=== PATIENT | female | born 1955 | race Caucasian/White ===

== ENCOUNTER 2019-08-02 11:42 | Inpatient (IN) | payer MEDICARE ==
[~2019-08-02] VITALS: Ht 182.9 cm; Wt 89.5 kg
[~2019-08-02 11:42] MED LIST: ALBU90OI; ALBU90OI INH; ALBU90OI61 INH; ALBUIS INH; AZIT250 PO; Acetaminophen1 EAC2 PO; Ativan0.5 MG PO; BASAGLAR K100 UNIT/1 SC; BECL40OI; BECL40OI INH; Ceftriaxone2 G1 IV; Cleocin HCl150 MG PO; FLUSAL1005; FLUSAL2505 INH; FLUT1DIS5 INH; FURO20 PO; FURO40 PO; Ferrous Sulfat325 MG PO; GABA100 PO; INSDET100 SC; INSU100I6 SC; INSULANI SC; INSULANPEN SC; Keflex500 MG PO; LEVFLO500 PO; LEVO750 PO; Levaquin500 MG PO; METF500; METF500C PO; Metoprolol Tart25 MG PO; NOVOLOG FL100 UNIT/3 SC; Novolog Fl100 UNIT/1 SQ; OMEPRAZOLE MAGN20 MG PO; OXYC5 PO; POTCHL10ER; POTCHL10ER PO; PRODEXEL PO; QVAR7.3 G1 INH; RIFA550T2 PO; SPIR50 PO; SUCR1 PO; VANCOMYCIN2 GM/250 M IV; Zofran Odt4 MG PO; [UNRECOGNIZED DRUG - REMARK]
[2019-08-02 12:30] LABS: Source, Urine Catheter
[2019-08-02 12:39] LABS: Bilirubin, Urine Neg (Neg); Blood, Urine 5+ (Neg); Glucose Qualitative, Urine Neg (Neg); Ketones, Urine 1+ (Neg); Leukocyte Esterase, Urine 1+ (Neg); Nitrite, Urine Pos (Neg); Protein, Urine 1+ (Neg); Urobilinogen, Urine NORM (Normal)
[2019-08-02 12:49] LABS: International Normalized Ratio 1.45; Prothrombin Time Results 15.2 Sec (9.7-11.5)
[2019-08-02 12:54] LABS: Appearance, Urine Hazy (Clear); Color, Urine Yellow (P-Yellow)
[2019-08-02 12:57] LABS: Bacteria Many /hpf; Squamous Epithelial Cells Rare /hpf (Few)
[2019-08-02 13:02] LABS: Albumin, Blood 2.7 g/dL (3.4-5.0); Albumin/Globulin Ratio 0.7 (0.8-1.8); Bilirubin, Total 2.6 mg/dL (0.1-1.0); Bun/Creatinine Ratio 20.4 (12.0-20.0); Creatinine, Blood 1.42 mg/dL (0.40-1.00); Globulin, Blood 3.9 g/dL (2.2-4.0); Potassium, Blood 4.5 mmol/L (3.5-5.5); Total Protein, Blood 6.6 g/dL (6.4-8.2)
[2019-08-02 14:20] LABS: BASOPHILS PERCENT AUTO 0 % (0-2); EOSINOPHILS PERCENT AUTO 0 % (0-6); Hematocrit 32.6 % (33.0-51.0); Hemoglobin 10.4 g/dL (11.5-16.0); IMMATURE GRAN ABSOLUTE AUTO 0.09 K/mm3 (0.00-0.10); IMMATURE GRAN PERCENT AUTO 2 % (0-1); LYMPHOCYTES ABSOLUTE AUTO 0.25 K/mm3 (0.84-5.20); LYMPHOCYTES PERCENT AUTO 5 % (21-46); MONOCYTES ABSOLUTE AUTO 0.53 K/mm3 (0.16-1.47); MONOCYTES PERCENT AUTO 11 % (4-13); Mean Corpuscular HGB 29.9 pg (26.0-34.0); Mean Corpuscular HGB Conc 31.9 g/dL (31.5-36.5); Mean Corpuscular Volume 94 fL (80-100); Mean Platelet Volume 11.5 fL (9.1-12.4); NEUTROPHILS ABSOLUTE AUTO 3.99 K/mm3 (1.96-9.15); NEUTROPHILS PERCENT AUTO 82 % (41-73); RDW Coefficient Variation 14.3 % (11.7-14.2); RDW Standard Deviation 48.8 fL (35.1-46.3); Red Blood Cell Count 3.48 M/mm3 (3.80-5.20); White Blood Cell Count 4.86 K/mm3 (4.00-11.30)
[2019-08-02 14:26] LABS: Platelet Count 35 K/mm3 (150-400)
[2019-08-02] MEDS ORDERED: ALDACTONE100 MG PO (15:40)
[2019-08-02 16:20] LABS: Adenovirus Not Detected (NOT DETECT); Bordetella pertussis Not Detected (NOT DETECT); Chlamydophila pneumoniae Not Detected (NOT DETECT); Coronavirus 229E Not Detected (NOT DETECT); Coronavirus HKU1 Not Detected (NOT DETECT); Coronavirus NL63 Not Detected (NOT DETECT); Coronavirus OC43 Not Detected (NOT DETECT); Human Metapneumovirus Not Detected (NOT DETECT); Human Rhinovirus/Enterovirus Not Detected (NOT DETECT); Influenza A/2009-H1 Not Detected (NOT DETECT); Influenza A/H1 Not Detected (NOT DETECT); Influenza A/H3 Not Detected (NOT DETECT); Influenza B Not Detected (NOT DETECT); Mycoplasma pneumoniae Not Detected (NOT DETECT); Parainfluenza Virus 1 Not Detected (NOT DETECT); Parainfluenza Virus 2 Not Detected (NOT DETECT); Parainfluenza Virus 3 Not Detected (NOT DETECT); Parainfluenza Virus 4 Not Detected (NOT DETECT); Respiratory Syncytial Virus Not Detected (NOT DETECT)
[2019-08-02] MEDS ORDERED: TRAZ50 PO (17:54)
--- NOTE | 2019-08-02 19:39 | NUR ---
SHIFT SUMMARY: Pt arrived to unit around 1730. Oriented to self, place, time and surrounding, confused to situation. States she does not know why she was here. LS diminished. HR irregular. BT hyperactive. Abd is distended but soft. Pt states that this is normal for her. Pt does have some jaundice noted in her sclara. Pulses palp. Pt states that she does have some numbness in her BLE. Bruising noted over all extremities. Pt states that she has fallen at home a few times. VSS were stable at admit. Pt did have one episode stool incontinence. Pt was changed and cleaned. IVF started per orders. Antibiotics given per orders. Report was given to night RN and care transfered. Stable at end of shift.
[2019-08-03 03:55] LABS: Hemoglobin 10.3 g/dL (11.5-16.0); Mean Corpuscular HGB Conc 32.2 g/dL (31.5-36.5); Mean Corpuscular Volume 93 fL (80-100); Mean Platelet Volume 12.2 fL (9.1-12.4); RDW Coefficient Variation 14.3 % (11.7-14.2); RDW Standard Deviation 49.5 fL (35.1-46.3); Red Blood Cell Count 3.43 M/mm3 (3.80-5.20)
[2019-08-03 04:02] LABS: Platelet Count 42 K/mm3 (150-400)
[2019-08-03 04:12] LABS: Calcium, Blood 7.9 mg/dL (8.5-10.1); Creatinine, Blood 1.25 mg/dL (0.40-1.00)
--- NOTE | 2019-08-03 04:47 | NUR ---
SHIFT SUMMARY: PATIENT MENTATION IMPROVING THROUGHOUT SHIFT, PARANOIA AND FORGETFUL BEHAVIOR NO LONGER AND ISSUE. PATIENT ABLE TO GET FROM BED TO BSC WITH SBA, STEADY ON FEET. ALL VSS, CALL LIGHT WITHIN REACH, BED LWO AND LOCKED.
[2019-08-03 16:06] LABS: Campylobacter Sp Not Detected (NOT DETECT); Plesiomonas Shigelloides Not Detected (NOT DETECT); Salmonella Sp Not Detected (NOT DETECT); Vibrio Cholerae Not Detected (NOT DETECT); Vibrio Sp Not Detected (NOT DETECT); Yersinia Enterocolitica Not Detected (NOT DETECT)
[2019-08-03 16:07] LABS: Adenovirus F 40/41 Not Detected (NOT DETECT); Astrovirus Not Detected (NOT DETECT); Cryptosporidium Not Detected (NOT DETECT); Cyclospora Cayetanensis Not Detected (NOT DETECT); E. Coli O157 Not Detected (NOT DETECT); Entamoeba Histolytica Not Detected (NOT DETECT); Enteroaggregative E. coli-EAEC Not Detected (NOT DETECT); Enteropathogenic E. coli-EPEC Not Detected (NOT DETECT); Enterotoxigenic E. coli-ETEC Not Detected (NOT DETECT); Giardia Lamblia Not Detected (NOT DETECT); Norovirus GI/GII Not Detected (NOT DETECT); Rotavirus A Not Detected (NOT DETECT); Sapovirus Not Detected (NOT DETECT); Shiga Toxin-prod E. coli-STEC Not Detected (NOT DETECT); Shigella/Enteroin E. coli-EIEC Not Detected (NOT DETECT)
--- NOTE | 2019-08-03 16:35 | NUR ---
TRANSFER NOTE PT A&O; LABILE IN MOOD, PLEASANT AT TIMES AND IRRITABLE WITH STAFF AT TIMES. PT REPORTS MARCANO; MEDICATED x1 WITH TYLENOL WITH POSITIVE RESULTS. PT REPORTS SENSITIVE SKINS, AGGITATED WITH VS AND IV INSERTION; USED THERAPUTIC COMMUNICATION TO ASSIST PT THROUGH PROCEDURES. PT HR THIS AM 120-150'S AFIB/FLUTTER THIS AM, MEDICATED WITH SCHEDULED METOPROLOL; HR TRENDING DOWN, REPORTING DIZZINESS YEARLY THIS AM WIHT INCREASED HR, DENYING THIS AFTERNOON. PT DENIES SOB, NAUSEA AND CHEST PAIN/PRESSURE. STOOL SPECIMEN SENT FOR GI PANEL. PT RECEIVING IV ANTIBIOTICS. OTHER VSS. NO OTHER ACUTE CHANGES NOTED. REPORT GIVEN TO RN ASSUMING CARE OF PT; PT TRANSFERED TO ROOM 359 AT 1619.
--- NOTE | 2019-08-03 18:55 | NUR ---
SHIFT SUMMARY: ASSUMED CARE OF PATIENT AT 1620 UPON HER ARRIVAL FROM PCU. A&O X 3, PLEASANT AND COOPERATIVE, NO CONFUSION NOTED. O2 SAT > 92% ON RA. HAVING DIARRHEA, STOOL PANEL SENT WHILE STILL IN PCU; RESULTED C DIFF +, PLACED IN ISOLATION AND EDUCATED ABOUT, VERBALIZED UNDERSTANDING. SKIN IS HEAVILY BRUISED AND PAINFUL TO THE TOUCH. GOOD APPETITE. USING BR, WEARING PULL UP. REFUSING SCD'S. PLAN IS D/C HOME WHEN APPROPRIATE, LIVES ALONE AND SON CHECKS ON HER.
--- NOTE | 2019-08-04 02:48 | NUR ---
08/04/19 9365 PT FRUSTRATED THAT SHE IS UNABLE TO SLEEP. STATES SHE HAS CHRONIC ISSUES WITH INSOMNIA AT HOME AND GETS UP AND WALKS OUTSIDE. INFORMED THAT SHE CANNOT DO THAT AND HAS NO OTHER MEDS AVAILABLE FOR SLEEP. PT GOING TO WATCH TV AND WILL NOTIFY IN AM ABOUT CONCERNS.
[2019-08-04 05:16] LABS: Hematocrit 29.1 % (33.0-51.0); Hemoglobin 9.4 g/dL (11.5-16.0); Mean Corpuscular HGB 30.1 pg (26.0-34.0); Mean Corpuscular HGB Conc 32.3 g/dL (31.5-36.5); Mean Corpuscular Volume 93 fL (80-100); Mean Platelet Volume 11.9 fL (9.1-12.4); RDW Coefficient Variation 14.2 % (11.7-14.2); RDW Standard Deviation 48.3 fL (35.1-46.3); Red Blood Cell Count 3.12 M/mm3 (3.80-5.20); White Blood Cell Count 1.76 K/mm3 (4.00-11.30)
[2019-08-04 05:28] LABS: Platelet Count 48 K/mm3 (150-400)
[2019-08-04 05:35] LABS: Bun/Creatinine Ratio 29.1 (12.0-20.0); Calcium, Blood 7.5 mg/dL (8.5-10.1); Creatinine, Blood 1.17 mg/dL (0.40-1.00); Magnesium, Blood 2.2 mg/dL (1.6-2.4); Potassium, Blood 3.9 mmol/L (3.5-5.5)
--- NOTE | 2019-08-04 05:44 | NUR ---
08/04/19 0530 PT HAVING DIFFICULTY SLEEPING TONIGHT. HAS CHRONIC ISSUES WITH SLEEP AT HOME. VITALS STABLE. C/O HEADACHE AT BEGINNING OF SHIFT BUT DENIES ANY NOW. AFEBRILE. ISOLATION MAINTAINED FOR POSITIVE C.DIFF. PT FRUSTRATED WITH ILLNESS AND HOSPITALIZATION.
--- NOTE | 2019-08-04 18:13 | NUR ---
SHIFT SUMMARY: COOPERATIVE AND PLEASANT THIS SHIFT. C/O HEADACHE AND BACK PAIN; MEDICATED WITH TYLENOL WITH GOOD EFFECT. UP IN CHAIR MOST OF THE DAY. IS REFUSING SCD'S D/T BLE NEUROPATHY. O2 SAT > 92% ON RA. USING BR, LBM TODAY, LOOSE PER REPORT. WANTS TO GO HOME TOMORROW, FEELS THAT SHE IS READY.
--- NOTE | 2019-08-04 21:36 | NUR ---
2017 PT LYING IN BED, REPORTS ABD PAIN, REPORTS SOB THAT INCREASES WITH EXERTION, ON RA AT 99%. IV IS INFILTRATED, DC'D IV. PER PT REQUEST R/T SKIN SENSITIVITY TO IV TAPE, WILL ASK DR RE LEAVING IV OUT AND CHANGING IV ROCEPHIN TO PO EQUIVILENT. BS WAS 230. SCD'S-PT DECLINED R/T SKIN SENSITIVITY. NO OTHER APPARENT SIGNS OF DISTRESS. CALL LIGHT IS IN REACH.
--- NOTE | 2019-08-04 21:38 | NUR ---
2107 DR OBRIEN WANTED TO DO SOME MORE RESEARCH REGARDING PT'S INFECTIONS BEFORE CONSIDERING CHANGING IV ROCEPHIN TO EQUIVALENT PO MED, BUT DID OK LEAVING IV OUT FOR NOW. IT IS ALSO POSSIBLE THAT THE DAY HOSPITALIST MAY NEED TO MAKE THAT DECISION. PT IS AWARE.
--- NOTE | 2019-08-04 22:12 | NUR ---
PT LYING IN BED, AWAKE, WATCHING TV. NO APPARENT SIGNS OF DISTRESS. CALL LIGHT IS IN REACH.
--- NOTE | 2019-08-04 23:56 | NUR ---
2316 PT LYING IN BED, EYES CLOSED, WAKES EASILY TO VERBAL STIMULI. NO APPARENT SIGNS OF DISTRESS. CALL LIGHT IS IN REACH.
--- NOTE | 2019-08-05 01:33 | NUR ---
PT LYING IN BED, EYES CLOSED, APPEARS TO BE RESTING. BREATHING IS EVEN, UNLABORED. NO APPARENT SIGNS OF DISTRESS. CALL LIGHT IS IN REACH.
--- NOTE | 2019-08-05 03:45 | NUR ---
PT LYING IN BED, EYES CLOSED, APPEARS TO BE RESTING. BREATHING IS EVEN, UNLABORED. NO APPARENT SIGNS OF DISTRESS. CALL LIGHT IS IN REACH.
--- NOTE | 2019-08-05 03:45 | NUR ---
PT IS AAO X 4, ON RA AT 99%. REPORTS SOB THAT INCREASES WITH EXERTION. REPORTS ABD PAIN-GOT TYLENOL X 1. IV WAS INFILTRATED, DC'D IV, PT REQUESTED IT TO BE LEFT OUT, SPOKE WITH DR OBRIEN, HE SAID IT WAS OK TO LEAVE OUT FOR NOW, THAT HE WOULD RESEARCH THE PT'S INFORMATION TO SEE IF WE COULD CHANGE THE IV ROCEPHIN TO A PO EQUIVALENT, OR POSSIBLY LEAVE IT FOR THE DAY HOSPITALIST TO DECIDE. BS WAS 230. PT DECLINED SCD'S R/T PAIN.
--- NOTE | 2019-08-05 05:31 | NUR ---
PT LYING IN BED, AWAKE, LAB IN ROOM. NO APPARENT SIGNS OF DISTRESS. CALL LIGHT IS IN REACH. NO OTHER CHANGES THIS SHIFT.
[2019-08-05 06:02] LABS: Hematocrit 29.2 % (33.0-51.0); Hemoglobin 9.4 g/dL (11.5-16.0); Mean Corpuscular HGB 30.3 pg (26.0-34.0); Mean Corpuscular HGB Conc 32.2 g/dL (31.5-36.5); Mean Corpuscular Volume 94 fL (80-100); Mean Platelet Volume 11.5 fL (9.1-12.4); Platelet Count 53 K/mm3 (150-400); RDW Coefficient Variation 14.4 % (11.7-14.2); RDW Standard Deviation 49.1 fL (35.1-46.3); White Blood Cell Count 1.12 K/mm3 (4.00-11.30)
[2019-08-05 06:22] LABS: Bun/Creatinine Ratio 25.6 (12.0-20.0); Calcium, Blood 7.6 mg/dL (8.5-10.1); Creatinine, Blood 1.21 mg/dL (0.40-1.00); Magnesium, Blood 2.2 mg/dL (1.6-2.4); Potassium, Blood 4.2 mmol/L (3.5-5.5)
[2019-08-05] MEDS ORDERED: SPIR25 PO (11:09)
[2019-08-05] MEDS ORDERED: AZIT250 PO (11:10)
[2019-08-05] MEDS ORDERED: LACT PO (11:10)
[2019-08-05] MEDS ORDERED: FERSU300 PO (11:10)
[2019-08-05] MEDS ORDERED: MELATONIN5 M1 PO (11:11)
[2019-08-05] MEDS ORDERED: METO25 PO (11:11)
[2019-08-05] MEDS ORDERED: VANCOCIN HCL125 MG PO (11:12)
[2019-08-05] MEDS ORDERED: CEFU500T30 PO (11:12)
--- NOTE | 2019-08-05 12:25 | NUR ---
DISCHARGE PT STATE FEELING IMPROVED, STATE HOPEFUL TO GO HOME. STATE DIARRHEA CONTINUES HOWEVER SOMEWHAT IMPROVED. DR GRIGGS IN TO SEE HER, REVIEW DX & TX, PLACE D/C ORDERS w ANTIBX. ORDERS FAXED TO [facility]. D/C INSTRUCT PROVIDED w EMPHASIS ON C-DIFF PRECAUTIONS, ESTABLISHING NEW PCP & GI, FINISHING ANTIBX COURSE. EDGER FEEDER IN TO PROVIDE PT INFO/ED R/T FINDING NEW PCP. PT SHOWERED THIS AM IND. REGULATORY CONSULTANT ASSIST HER TO GATHER BELONGINGS. HER FRIEND BROUGHT IN [employer] CLOTHING & WILL PICK HER UP WHEN SHE IS READY TO LEAVE. PT IS PLEASANT/APPRECIATIVE. STATE SATISFACTION.
== END 2019-08-05 12:45 | disposition home or self-care (01) | DRG 871 ==
LOC: ER 11:42 → PCU 15:31 → MEDS 08-03 16:20
PROVIDERS: Emergency Medicine; ADMIT Internal Medicine
DX: A41.9 Sepsis, unspecified organism (principal); R65.21 Severe sepsis with septic shock; J18.9 Pneumonia, unspecified organism; G92 Toxic encephalopathy; A04.72 Enterocolitis due to Clostridium difficile, not specified as recurrent; J44.0 Chronic obstructive pulmonary disease with (acute) lower respiratory infection; N39.0 Urinary tract infection, site not specified; I48.91 Unspecified atrial fibrillation; I12.9 Hypertensive chronic kidney disease with stage 1 through stage 4 chronic kidney disease, or unspecified chronic kidney disease; N18.3 Chronic kidney disease, stage 3 (moderate); E11.22 Type 2 diabetes mellitus with diabetic chronic kidney disease; D69.6 Thrombocytopenia, unspecified; K74.60 Unspecified cirrhosis of liver; B19.20 Unspecified viral hepatitis C without hepatic coma; Z87.891 Personal history of nicotine dependence; Z79.4 Long term (current) use of insulin
CPT/HCPCS: 0097U; 0099U; 36415; 70450; 71045; 71100; 74177; 80048; 80053; 81001; 82140; 82947; 83605; 83735; 85025; 85027; 85610; 85730; 87070; 87077; 87086; 87186; 87205; 87324; 93005; 93010; 94640; 94760; 96361; 96365-59; 99285-25; A9270; A9270-GY; J0696; J7050; J7120; P9612; Q9967; U0002

== ENCOUNTER 2019-08-29 11:14 | Emergency (ER) | payer OTHER ==
[~2019-08-29] VITALS: Ht 182.9 cm; Wt 91.2 kg
[~2019-08-29 11:14] MED LIST changes: +ALDACTONE100 MG PO; +CEFU500T30 PO; +FERSU300 PO; +LACT PO; +MELATONIN5 M1 PO; +METO25 PO; +SPIR25 PO; +TRAZ50 PO; +VANCOCIN HCL125 MG PO
[2019-08-29 12:23] LABS: BASOPHILS ABSOLUTE AUTO 0.01 K/mm3 (0.00-0.23); BASOPHILS PERCENT AUTO 0 % (0-2); EOSINOPHILS ABSOLUTE AUTO 0.03 K/mm3 (0.00-0.68); EOSINOPHILS PERCENT AUTO 1 % (0-6); Hematocrit 35.9 % (33.0-51.0); Hemoglobin 11.2 g/dL (11.5-16.0); IMMATURE GRAN ABSOLUTE AUTO 0.01 K/mm3 (0.00-0.10); IMMATURE GRAN PERCENT AUTO 0 % (0-1); LYMPHOCYTES ABSOLUTE AUTO 0.46 K/mm3 (0.84-5.20); LYMPHOCYTES PERCENT AUTO 16 % (21-46); MONOCYTES ABSOLUTE AUTO 0.41 K/mm3 (0.16-1.47); MONOCYTES PERCENT AUTO 14 % (4-13); Mean Corpuscular HGB 30.2 pg (26.0-34.0); Mean Corpuscular HGB Conc 31.2 g/dL (31.5-36.5); Mean Corpuscular Volume 97 fL (80-100); Mean Platelet Volume 11.2 fL (9.1-12.4); NEUTROPHILS ABSOLUTE AUTO 1.99 K/mm3 (1.96-9.15); NEUTROPHILS PERCENT AUTO 69 % (41-73); NRBC ABSOLUTE 0.02 K/mm3 (0.00-0.02); NRBC Auto 0.7 /100 WBC (0.0-0.2); Platelet Count 52 K/mm3 (150-400); RDW Coefficient Variation 15.2 % (11.7-14.2); RDW Standard Deviation 54.2 fL (35.1-46.3); Red Blood Cell Count 3.71 M/mm3 (3.80-5.20); White Blood Cell Count 2.91 K/mm3 (4.00-11.30)
[2019-08-29 12:24] LABS: Albumin, Blood 2.9 g/dL (3.4-5.0); Albumin/Globulin Ratio 0.7 (0.8-1.8); Bilirubin, Total 1.5 mg/dL (0.1-1.0); Bun/Creatinine Ratio 26.5 (12.0-20.0); Calcium, Blood 8.5 mg/dL (8.5-10.1); Creatinine, Blood 1.17 mg/dL (0.40-1.00); Potassium, Blood 4.5 mmol/L (3.5-5.5); Total Protein, Blood 6.9 g/dL (6.4-8.2)
[2019-08-30] MEDS ORDERED: Bactrim Ds Tab1 EACH PO (23:52)
[2019-08-30] MEDS ORDERED: CEPH500 PO (23:52)
== END 2019-08-29 13:51 | disposition home or self-care (01) ==
LOC: ER 11:14
PROVIDERS: Emergency Medicine
DX: M79.89 Other specified soft tissue disorders (principal); S81.811D Laceration without foreign body, right lower leg, subsequent encounter; Z88.8 Allergy status to other drugs, medicaments and biological substances; Z79.4 Long term (current) use of insulin; Z79.899 Other long term (current) drug therapy; I12.9 Hypertensive chronic kidney disease with stage 1 through stage 4 chronic kidney disease, or unspecified chronic kidney disease; N18.3 Chronic kidney disease, stage 3 (moderate); D63.1 Anemia in chronic kidney disease; E11.22 Type 2 diabetes mellitus with diabetic chronic kidney disease; J44.9 Chronic obstructive pulmonary disease, unspecified; I48.20 Chronic atrial fibrillation, unspecified
CPT/HCPCS: 36415; 73590; 73620; 80053; 85025; 93971; 99284-25

== ENCOUNTER 2019-09-27 09:43 | Inpatient (IN) | payer OTHER ==
[~2019-09-27] VITALS: Ht 182.9 cm; Wt 87.1 kg
[~2019-09-27 09:43] MED LIST changes: +Bactrim Ds Tab1 EACH PO; +CEPH500 PO
[2019-09-27 13:05] LABS: BASOPHILS ABSOLUTE AUTO 0.01 K/mm3 (0.00-0.23); BASOPHILS PERCENT AUTO 0 % (0-2); EOSINOPHILS ABSOLUTE AUTO 0.04 K/mm3 (0.00-0.68); EOSINOPHILS PERCENT AUTO 2 % (0-6); Hematocrit 36.1 % (33.0-51.0); Hemoglobin 11.4 g/dL (11.5-16.0); IMMATURE GRAN ABSOLUTE AUTO 0.01 K/mm3 (0.00-0.10); IMMATURE GRAN PERCENT AUTO 0 % (0-1); LYMPHOCYTES ABSOLUTE AUTO 0.36 K/mm3 (0.84-5.20); LYMPHOCYTES PERCENT AUTO 15 % (21-46); MONOCYTES ABSOLUTE AUTO 0.25 K/mm3 (0.16-1.47); MONOCYTES PERCENT AUTO 10 % (4-13); Mean Corpuscular HGB 29.4 pg (26.0-34.0); Mean Corpuscular HGB Conc 31.6 g/dL (31.5-36.5); Mean Corpuscular Volume 93 fL (80-100); Mean Platelet Volume 10.8 fL (9.1-12.4); NEUTROPHILS ABSOLUTE AUTO 1.73 K/mm3 (1.96-9.15); NEUTROPHILS PERCENT AUTO 72 % (41-73); Platelet Count 57 K/mm3 (150-400); RDW Coefficient Variation 15.3 % (11.7-14.2); RDW Standard Deviation 53.1 fL (35.1-46.3); Red Blood Cell Count 3.88 M/mm3 (3.80-5.20)
[2019-09-27 13:15] LABS: Bun/Creatinine Ratio 20.4 (12.0-20.0); Calcium, Blood 9.2 mg/dL (8.5-10.1); Creatinine, Blood 1.52 mg/dL (0.40-1.00); Potassium, Blood 4.7 mmol/L (3.5-5.5)
[2019-09-27 15:45] LABS: Albumin, Blood 2.8 g/dL (3.4-5.0); Albumin/Globulin Ratio 0.7 (0.8-1.8); Bun/Creatinine Ratio 19.5 (12.0-20.0); Calcium, Blood 9.1 mg/dL (8.5-10.1); Creatinine, Blood 1.59 mg/dL (0.40-1.00); Globulin, Blood 4.3 g/dL (2.2-4.0); Potassium, Blood 4.7 mmol/L (3.5-5.5); Total Protein, Blood 7.1 g/dL (6.4-8.2)
[2019-09-28 05:11] LABS: BASOPHILS ABSOLUTE AUTO 0.01 K/mm3 (0.00-0.23); BASOPHILS PERCENT AUTO 0 % (0-2); EOSINOPHILS ABSOLUTE AUTO 0.03 K/mm3 (0.00-0.68); EOSINOPHILS PERCENT AUTO 1 % (0-6); Hematocrit 35.6 % (33.0-51.0); Hemoglobin 11.2 g/dL (11.5-16.0); IMMATURE GRAN PERCENT AUTO 0 % (0-1); LYMPHOCYTES ABSOLUTE AUTO 0.38 K/mm3 (0.84-5.20); LYMPHOCYTES PERCENT AUTO 16 % (21-46); MONOCYTES ABSOLUTE AUTO 0.36 K/mm3 (0.16-1.47); MONOCYTES PERCENT AUTO 15 % (4-13); Mean Corpuscular HGB 29.9 pg (26.0-34.0); Mean Corpuscular HGB Conc 31.5 g/dL (31.5-36.5); Mean Corpuscular Volume 95 fL (80-100); NEUTROPHILS ABSOLUTE AUTO 1.62 K/mm3 (1.96-9.15); NEUTROPHILS PERCENT AUTO 68 % (41-73); Platelet Count 56 K/mm3 (150-400); RDW Coefficient Variation 15.4 % (11.7-14.2); RDW Standard Deviation 53.8 fL (35.1-46.3); Red Blood Cell Count 3.75 M/mm3 (3.80-5.20)
[2019-09-28 05:24] LABS: International Normalized Ratio 1.28; Prothrombin Time Results 13.5 Sec (9.7-11.5)
[2019-09-28 05:55] LABS: Albumin, Blood 2.8 g/dL (3.4-5.0); Albumin/Globulin Ratio 0.7 (0.8-1.8); Bilirubin, Total 0.8 mg/dL (0.1-1.0); Bun/Creatinine Ratio 19.3 (12.0-20.0); Creatinine, Blood 1.66 mg/dL (0.40-1.00); Globulin, Blood 3.9 g/dL (2.2-4.0); Total Protein, Blood 6.7 g/dL (6.4-8.2)
--- NOTE | 2019-09-28 06:52 | NUR ---
SHIFT SUMMARY HAS RESTED WELL THIS SHFIT. PAIN MEDS ADMINSTERED X2 THIS SHIFT. UNABLE TO TOLERATE SLING TO RUE. TAKEN TO CT SCAN OF RUE THIS MORNING. WAS MEDICATED FOR PAIN BEFORE GOING. DENIES PAIN, DISCOMFORT, OR FURTHER NEEDS AT THIS TIME. IS TO BE GOING TO OR THIS AM FOR RT HIP REPAIR AND POSS RIGHT RADIAL REPAIR. SAFETY MEASURES IN PLACE. WILL CONTINUE TO MONITOR ANF GIVE HAND OFF TO ONCOMING SHIFT USING AR DURINI BEDSIDE REPORT.
--- NOTE | 2019-09-28 10:45 | NUR ---
DR CONWAY ROUNDS. SURGERY POSTPONED. DUE TO LOW PLT COUNT. WILL INFORM LALITA MONK WHEN HE ROUNDS.
--- NOTE | 2019-09-28 16:57 | NUR ---
SHIFT SUMMARY PT HAS BEEN EITHER SLEEPING OR WIDE AWAKE DURING MY SHIFT. PAIN APPEARS TO BE CONTROLLED BUT DOES HAVE SPASMS OCC. C/O ITCHING. PLAN FOR OR TOMORROW POST PLATELET TRANSFUSIONS.
--- NOTE | 2019-09-29 00:43 | NUR ---
SPOKE WITH DR MONTENEGRO, PLAN FOR 2 UNITS OF PLATELETS FOR APPROX 0600 TOMORROW MORNING AND LABS FOR 10AM PRIOR TO SURGERY.
--- NOTE | 2019-09-29 01:34 | NUR ---
BLOOD BANK NOTIFIED THIS RN OF ONLY HAVING ONE UNIT OF PLATELETS AVAILABLE AT THIS TIME. BB WILL TRY TO LOCATE MORE PRIOR TO PT'S SURGERY. CLINICAL COORDINATOR NOTIFIED. WILL PLAN TO INFUSE FIRST UNIT AND NOTIFY DAY RN.
--- NOTE | 2019-09-29 04:11 | NUR ---
SHIFT SUMMARY PT A/OX4, VSS. NPO SINCE MIDNIGHT. MEDICATED FOR PAIN AND NAUSEA ONCE DURING SHIFT. HOFFMANN TO GRAVITY DRAIN, URINE CLEAR AND YELLOW IN COLOR. APPEARS TO HAVE SLEPT WELL T/O SHIFT. PLAN TO ADMINISTER PLATELETS AND FOR POSSIBLE SURGERY TODAY.
[2019-09-29 08:43] LABS: International Normalized Ratio 1.24; Prothrombin Time Results 13.1 Sec (9.7-11.5)
--- NOTE | 2019-09-29 09:29 | NUR ---
IV INFILTRATED SHORTLY AFTER PLATELET TRANSFUSION INITIATED. APPROX ONLY 10CC INFUSED. MULTIPLE UNSUCCESSFUL PIV ATTEMPTS. PT TO DAY SURGERY WITH DAY SURGERY RN AND ANESTHESIOLOGIST AT BEDSIDE.
--- NOTE | 2019-09-29 09:37 | NUR ---
History, Chart, Medications and Allergies reviewed before start of procedure. Patient confirms NPO status and agrees with scheduled surgery. Pre-Op teaching done. Pt verbalizes understanding. PT HAVING MUCH DISTRESS WITH IV PLACED WHILE ON THE FLOOR. DR. CLINE DAY SURGERY AND HE WAS ABLE TO PLACE IV IN R ARM WHICH HAS HAS WOUND WHICH IS DRESSED AND DRAINING. PT PER FLOOR RN IS UNWILL TO LET THE NURSES CHANGE THE DRESSINGS. PT YELLS OUT WITH ANY MOVEMENT OF BED. PT IS MEDICATED BY DR. CLINE WTIH FENTANYL 100MCG FOR PAIN. PT IS RESTING COMFORTABLY AND HAS PLATLETS RESTARTED TO COMPLETE INFUSION. PT IS PLACED ON 3L NC AFTER PAIN MEDICATIONS PROVIDED.
--- NOTE | 2019-09-29 09:40 | NUR ---
DAY SURGERY TO TRANSFUSE REST OF PLATELETS.
--- NOTE | 2019-09-29 11:14 | NUR ---
09/29/19 1114 Adan Ivory PATIENT ARRIVED WITH HOFFMANN CATH DRAINING ANNIE COLORED URINE. PATIENT HAS MULTIPLE WOUNDS AND BRUISES. WOUND ON RIGHT POSTERIOR FOREARM RE- DRESSED WITH LARGE XEROFORM, 4 X 4 GAUZE AND DENICE BANDAGE.
--- NOTE | 2019-09-29 13:02 | NUR ---
POST OP S/P R HIP PINNING. POST OP VS IN PROGRESS AND STABLE. PLANNING TO WEAN OFF OF 02 TOLERATED. PT REPORTS PAIN, BUT DENIES NEEDING PAIN MEDICATIONS. HOFFMANN PATENT AND DRAINING CLEAR YELLOW. IVF INFUSING PER ORDERS. OFFERED ICE CHIPS AND SIPS OF WATER TO START WITH. DRESSINGS TO R ARM, R HIP, AND R CORTEZ ALL ARE CDI. CAP REFILL TO TOES WNL. PT AWAKENS EASILY TO VERBAL STIMULI, BUT REMAINS DROWSY. CALL LIGHT WITHIN REACH.
[2019-09-29 15:31] LABS: BASOPHILS PERCENT AUTO 0 % (0-2); EOSINOPHILS ABSOLUTE AUTO 0.01 K/mm3 (0.00-0.68); EOSINOPHILS PERCENT AUTO 0 % (0-6); Hemoglobin 10.5 g/dL (11.5-16.0); IMMATURE GRAN ABSOLUTE AUTO 0.01 K/mm3 (0.00-0.10); IMMATURE GRAN PERCENT AUTO 0 % (0-1); LYMPHOCYTES ABSOLUTE AUTO 0.25 K/mm3 (0.84-5.20); LYMPHOCYTES PERCENT AUTO 9 % (21-46); MONOCYTES ABSOLUTE AUTO 0.13 K/mm3 (0.16-1.47); MONOCYTES PERCENT AUTO 5 % (4-13); Mean Corpuscular HGB 29.9 pg (26.0-34.0); Mean Corpuscular HGB Conc 30.9 g/dL (31.5-36.5); Mean Corpuscular Volume 97 fL (80-100); NEUTROPHILS ABSOLUTE AUTO 2.43 K/mm3 (1.96-9.15); NEUTROPHILS PERCENT AUTO 86 % (41-73); Platelet Count 59 K/mm3 (150-400); RDW Coefficient Variation 14.7 % (11.7-14.2); RDW Standard Deviation 52.6 fL (35.1-46.3); Red Blood Cell Count 3.51 M/mm3 (3.80-5.20); White Blood Cell Count 2.83 K/mm3 (4.00-11.30)
[2019-09-29 15:48] LABS: International Normalized Ratio 1.24; Prothrombin Time Results 13.1 Sec (9.7-11.5)
[2019-09-29 15:53] LABS: Albumin, Blood 2.6 g/dL (3.4-5.0); Albumin/Globulin Ratio 0.6 (0.8-1.8); Bun/Creatinine Ratio 24.3 (12.0-20.0); Calcium, Blood 8.3 mg/dL (8.5-10.1); Creatinine, Blood 1.52 mg/dL (0.40-1.00); Globulin, Blood 4.5 g/dL (2.2-4.0); Potassium, Blood 5.7 mmol/L (3.5-5.5); Total Protein, Blood 7.1 g/dL (6.4-8.2)
--- NOTE | 2019-09-29 16:30 | NUR ---
SHIFT SUMMARY S/P R HIP PINNING TODAY. DENICE WRAP TO HIP REMAINS CDI. POST OP VSS. NO IV ACCESS. DR. CONWAY AWARE. PLANNING TO START PO NORCO AFTER PO INTAKE WITH DINNER. HOFFMANN DRAINING CLEAR YELLOW URINE. PT/OT EVALS TO OCCUR TOMORROW PT HAS BEEN AGITATED AND IRRITABLE WITH STAFF AND CARE POST OP. PT HAS FREQUENT FLIGHT OF IDEAS. BED ALARM IN PLACE FOR SAFETY. CALL LIGHT WITHIN REACH.
--- NOTE | 2019-09-30 03:43 | NUR ---
SHIFT SUMMARY POD 1 RIGHT HIP PINNING. DENICE WRAP TO RLE APPEARS C/D/I. DRESSING TO RIGHT ARM ALSO C/D/I. PT APPEARS TO HAVE RESTED WELL T/O SHIFT. DENIED NEED FOR PAIN MEDICATION, FLEXERIL ADMINISTERED AT APPROX. 2100. PT REFUSED REPOSITIONING, IS ABLE TO SHIFT SELF SOME IN BED IND. HOFFMANN TO GRAVITY, DRAINING ANNIE CL URINE. NO IV ACCESS, MD AWARE PER DAY NURSE. PLAN FOR PT/OT EVAL TODAY. PT APPEARS TO BE CURRENTLY RESTING IN BED WITH EYES CLOSED. HAS CALL LIGHT IN REACH AND CONT BIOX IN PLACE. AWAITING MORNING LABS. WILL CONT TO MONITOR AND GIVE REPORT TO ONCOMING RN.
[2019-09-30 04:39] LABS: BASOPHILS PERCENT AUTO 0 % (0-2); EOSINOPHILS ABSOLUTE AUTO 0.01 K/mm3 (0.00-0.68); EOSINOPHILS PERCENT AUTO 0 % (0-6); Hematocrit 29.7 % (33.0-51.0); Hemoglobin 9.7 g/dL (11.5-16.0); IMMATURE GRAN ABSOLUTE AUTO 0.01 K/mm3 (0.00-0.10); IMMATURE GRAN PERCENT AUTO 0 % (0-1); LYMPHOCYTES ABSOLUTE AUTO 0.24 K/mm3 (0.84-5.20); LYMPHOCYTES PERCENT AUTO 11 % (21-46); MONOCYTES ABSOLUTE AUTO 0.31 K/mm3 (0.16-1.47); MONOCYTES PERCENT AUTO 14 % (4-13); Mean Corpuscular HGB 30.4 pg (26.0-34.0); Mean Corpuscular HGB Conc 32.7 g/dL (31.5-36.5); Mean Corpuscular Volume 93 fL (80-100); Mean Platelet Volume 10.8 fL (9.1-12.4); NEUTROPHILS ABSOLUTE AUTO 1.71 K/mm3 (1.96-9.15); NEUTROPHILS PERCENT AUTO 75 % (41-73); Platelet Count 52 K/mm3 (150-400); RDW Coefficient Variation 14.1 % (11.7-14.2); Red Blood Cell Count 3.19 M/mm3 (3.80-5.20); White Blood Cell Count 2.28 K/mm3 (4.00-11.30)
[2019-09-30 04:57] LABS: International Normalized Ratio 1.34; Prothrombin Time Results 14.1 Sec (9.7-11.5)
[2019-09-30 05:06] LABS: Albumin, Blood 2.4 g/dL (3.4-5.0); Albumin/Globulin Ratio 0.6 (0.8-1.8); Bilirubin, Total 0.9 mg/dL (0.1-1.0); Bun/Creatinine Ratio 32.6 (12.0-20.0); Creatinine, Blood 1.32 mg/dL (0.40-1.00); Globulin, Blood 3.9 g/dL (2.2-4.0); Potassium, Blood 4.9 mmol/L (3.5-5.5); Total Protein, Blood 6.3 g/dL (6.4-8.2)
--- NOTE | 2019-09-30 10:25 | NUR ---
THERAPY IN TO WORKING WITH PT.
--- NOTE | 2019-09-30 13:45 | NUR ---
DR MONTENEGRO HERE EARLIER TO SEE PT. DISCUSSED PT'S STATUS OF NO IV ACCESS, PT DRINKING WELL, NEWEST ORDERS. SEE ORDERS.
--- NOTE | 2019-09-30 15:19 | NUR ---
DR CONWAY HERE RECENTLY TO SEE PT. DISCUSSED CHANGING DRESSINGS EARLIER TODAY AND PT STATING TO NOT WANT DENICE WRAP TO THIGH IT WAS CUTTING IN TO HER GROIN. FAMILY PRESENT. PT REPORTED WOULD BE AGREEABLE TO GO TO REHAB. DR CONWAY DISCUSSED WITH FAMILY AND PT OF POSSIBILITY OF GOING TO REHAB TOMMORROW. QUALITY COMPLIANCE MANAGER LEFT MESSAGE. PT REPORTED TO DR CONWAY THAT PAIN WAS MUCH BETTER.
--- NOTE | 2019-09-30 15:54 | NUR ---
SHIFT SUMMARY PT EATING AND DRINKING, PT WORKED WITH THERAPY TODAY, WAS NOT ABLE TO BE UP OOB. PT REPOSITIONGING HERSELF IN BED. PT BEEN ASSISTED WITH ADL'S PRN. PT HAS HOFFMANN IN PLACE. PT BEEN MED PRN FOR PAIN. PT FAMILY IN THIS AFTERNOON. PT BEEN SEEN BY DR MONTENEGRO AND DR CONWAY. DRESSINGS CHANGED TODAY.
--- NOTE | 2019-10-01 05:00 | NUR ---
RIANNA HAS BEEN SLEEPING MOST OF THE NIGHT. SHE CONTINUES TO HAVE THE HOFFMANN CATH, wILL REMOVE WHEN AWAKE. MEDICATED WITH ORAL PAIN MEDICATIONS. DENIES THE NEED FOR MEDICATION THIS AM. RT HIP WITH AQUACEL TO SUTURE LINE, NO BLEED THROUGH. WILL CONTINUE TO MONITOR, CALL LIGHT IN PLACE.
[2019-10-01 11:54] LABS: BASOPHILS ABSOLUTE AUTO 0.01 K/mm3 (0.00-0.23); BASOPHILS PERCENT AUTO 0 % (0-2); EOSINOPHILS ABSOLUTE AUTO 0.03 K/mm3 (0.00-0.68); EOSINOPHILS PERCENT AUTO 1 % (0-6); Hematocrit 32.8 % (33.0-51.0); Hemoglobin 10.4 g/dL (11.5-16.0); IMMATURE GRAN ABSOLUTE AUTO 0.01 K/mm3 (0.00-0.10); IMMATURE GRAN PERCENT AUTO 0 % (0-1); LYMPHOCYTES ABSOLUTE AUTO 0.29 K/mm3 (0.84-5.20); LYMPHOCYTES PERCENT AUTO 12 % (21-46); MONOCYTES ABSOLUTE AUTO 0.35 K/mm3 (0.16-1.47); MONOCYTES PERCENT AUTO 15 % (4-13); Mean Corpuscular HGB 29.9 pg (26.0-34.0); Mean Corpuscular HGB Conc 31.7 g/dL (31.5-36.5); Mean Corpuscular Volume 94 fL (80-100); Mean Platelet Volume 9.8 fL (9.1-12.4); NEUTROPHILS ABSOLUTE AUTO 1.71 K/mm3 (1.96-9.15); NEUTROPHILS PERCENT AUTO 71 % (41-73); Platelet Count 63 K/mm3 (150-400); RDW Coefficient Variation 14.7 % (11.7-14.2); Red Blood Cell Count 3.48 M/mm3 (3.80-5.20)
[2019-10-01 12:11] LABS: Albumin, Blood 2.4 g/dL (3.4-5.0); Albumin/Globulin Ratio 0.6 (0.8-1.8); Bilirubin, Total 1.1 mg/dL (0.1-1.0); Bun/Creatinine Ratio 37.7 (12.0-20.0); Calcium, Blood 8.3 mg/dL (8.5-10.1); Creatinine, Blood 1.06 mg/dL (0.40-1.00); Globulin, Blood 4.1 g/dL (2.2-4.0); Potassium, Blood 4.5 mmol/L (3.5-5.5); Total Protein, Blood 6.5 g/dL (6.4-8.2)
--- NOTE | 2019-10-01 14:36 | NUR ---
PT WORKING WITH THERAPY, DR CONWAY TO ROOM. DR CONWAY ORDER FOR STAT XRAYS, SEE ORDERS. IMAGING NOTIFIED.
--- NOTE | 2019-10-01 15:16 | NUR ---
DR CONWAY CALLED, REPORTS XRAY'S SHOW NO BROKEN BONES, MAY CONT WITH DISCHARGE, FITTINGS FINISHER NOTIFIED.
--- NOTE | 2019-10-01 16:07 | NUR ---
SHIFT SUMMARY PT EATING AND DRINKING, VOIDING AFTER HOFFMANN OUT TODAY. PT BEEN ASSISTED WITH ADL'S PRN. PT BEEN MED FOR PAIN. PARVEEN BOYER'S IN TO SEE PT. PT PLAN TO GO TO SNF, COMPLIANCE TECHNICIAN BEEN ASSISTING WITH PT. PT HAD XRAY'S TODAY, SEE OTHER NOTE.
--- NOTE | 2019-10-02 05:26 | NUR ---
sHIFT SUMMARY PATIENT SLEPT FROM 2200 UNTIL 0530. UP TO THE BS WITH 2 PERSON ASSIST AFTER WAKING. SHE HAS PAIN IN HER LT FOOT WHILE STANDING AND PIVOTING IN PLACE AND PAIN IN HER RT HIP. MEDICATED WITH PO PAIN MEDICATION. SHE IS AFEBRILE THIS AM. WRAP ON HER RT ARM SKIN TEAR WAS FOUND TO NOT BE COVERING THE SKIN TEAR, AND THE SKIN TEAR IS HEALING WELL. THE SKIN TEAR ON HER RT LEG, EDGES ARE NOT APROXIMATED, THE WOUND BED IS MOIST AND RED. MEPITEL ONE DRESSING PLACED OVER SKIN TEAR AND COVERED WITH 4 X 4'S AND DENICE WRAP. PATIENT GIVEN A WARM BLANKET AND SHE STATED THE DESIRE TO GO TO SLEEP. NO OTHER ACUTE CHANGES.
--- NOTE | 2019-10-02 17:27 | NUR ---
SUMMARY NO ACUTE CHANGES T/O SHIFT. PT WORKED W/THERAPY. SITTING UP IN CHAIR. SHOWERED THIS SHIFT. MEDICATED PER ORDERS FOR PAIN. PT REPORTS L FOOT VERY PAINFUL TO AMBULATE ON. APPEARS SLIGHTLY SWOLLEN. DR OWEN SAYS WBAT TO L FOOT (TOE TOUCH WB TO RLE). AMBULATES W/FWW AND GAIT BELT. CALL LIGHT IN REACH.
--- NOTE | 2019-10-03 06:10 | NUR ---
SHIFT SUMMARY LYING IN LOW FOWLERS WITH EYES CLOSED. AAO X3, HAS RESTED WELL. RESPIRATIONS EVEN AND UNLABORED ON ROOM AIR. LUNG SOUNDS CLEAR BILATERALLY. ABDOMEN SOFT AND NONDISTENDED. BOWEL SOUNDS PRESENT IN ALL QUADS. CONCENTRATED CLEAR YELLOW URINE NOTED EACH VOID VIA BSC. DENIES PAIN, DISCOMFORT, OR FURTHER NEEDS AT THIS TIME. MEDICATED PRN PER EMAR. RIGHT HIP AQUACEL IN PLACE, SHADOWING NOTED. SAFETY MEASURES IN PLACE. WILL CONTINUE TO MONITOR AND GIVE HAND OFF TO ONCOMING SHIFT USING SBAR DURING BEDSIDE REPORT.
--- NOTE | 2019-10-03 17:50 | NUR ---
SUMMARY NO ACUTE CHANGES T/O SHIFT. PT UNABLE TO MAINTAIN TOE TOUCH WB TO RLE R/T PAIN IN L FOOT. MEDICATED PER ORDERS T/O SHIFT FOR PAIN. HAS BEEN SITTING UP IN RECLINER MOST OF SHIFT. APPLIED ICE TO R HIP FOR COMFORT. CALL LIGHT IN REACH.
[2019-10-04 04:29] LABS: BASOPHILS ABSOLUTE AUTO 0.01 K/mm3 (0.00-0.23); BASOPHILS PERCENT AUTO 1 % (0-2); EOSINOPHILS ABSOLUTE AUTO 0.05 K/mm3 (0.00-0.68); EOSINOPHILS PERCENT AUTO 4 % (0-6); Hemoglobin 9.5 g/dL (11.5-16.0); IMMATURE GRAN PERCENT AUTO 0 % (0-1); LYMPHOCYTES ABSOLUTE AUTO 0.28 K/mm3 (0.84-5.20); LYMPHOCYTES PERCENT AUTO 22 % (21-46); MONOCYTES ABSOLUTE AUTO 0.25 K/mm3 (0.16-1.47); MONOCYTES PERCENT AUTO 20 % (4-13); Mean Corpuscular HGB 30.1 pg (26.0-34.0); Mean Corpuscular HGB Conc 32.8 g/dL (31.5-36.5); Mean Corpuscular Volume 92 fL (80-100); Mean Platelet Volume 10.2 fL (9.1-12.4); NEUTROPHILS ABSOLUTE AUTO 0.67 K/mm3 (1.96-9.15); NEUTROPHILS PERCENT AUTO 53 % (41-73); Platelet Count 62 K/mm3 (150-400); RDW Coefficient Variation 14.6 % (11.7-14.2); RDW Standard Deviation 49.1 fL (35.1-46.3); Red Blood Cell Count 3.16 M/mm3 (3.80-5.20); White Blood Cell Count 1.26 K/mm3 (4.00-11.30)
[2019-10-04 04:53] LABS: Albumin, Blood 2.2 g/dL (3.4-5.0); Albumin/Globulin Ratio 0.5 (0.8-1.8); Bilirubin, Total 0.9 mg/dL (0.1-1.0); Bun/Creatinine Ratio 24.3 (12.0-20.0); Calcium, Blood 7.6 mg/dL (8.5-10.1); Creatinine, Blood 1.07 mg/dL (0.40-1.00); Globulin, Blood 4.1 g/dL (2.2-4.0); Total Protein, Blood 6.3 g/dL (6.4-8.2)
--- NOTE | 2019-10-04 05:55 | NUR ---
SHIFT SUMMARY LYING IN LOW FOWLERS WITH EYES CLOSED. AAO X3, HAS RESTED WELL. RESPIRATIONS EVEN AND UNLABORED ON ROOM AIR. LUNG SOUNDS CLEAR BILATERALLY. ABDOMEN SOFT AND NONDISTENDED. BOWEL SOUNDS PRESENT IN ALL QUADS. CONCENTRATED CLEAR YELLOW URINE NOTED EACH VOID VIA BSC. HAD VERY LARGE BM ON BSC, VOICES MUCH RELIEF. DENIES PAIN, DISCOMFORT, OR FURTHER NEEDS AT THIS TIME. MEDICATED PRN PER EMAR. RIGHT HIP AQUACEL IN PLACE, SHADOWING NOTED. SAFETY MEASURES IN PLACE. WILL CONTINUE TO MONITOR AND GIVE HAND OFF TO ONCOMING SHIFT USING SBAR DURING BEDSIDE REPORT.
[2019-10-04] MEDS ORDERED: CYCL10 PO (14:41)
[2019-10-04] MEDS ORDERED: OXYC5 PO (14:43)
--- NOTE | 2019-10-04 15:59 | NUR ---
DISCHARGE REPORT CALLED TO RH. PRINCESS PACHECO CHANGED. WAITING FOR W/C ESCORT.
== END 2019-10-04 16:20 | disposition home or self-care (01) | DRG 481 ==
LOC: ER 09:43 → SURS 15:22
PROVIDERS: Emergency Medicine; Orthopaedic Surgery; ADMIT Internal Medicine
PROC: 0QH Lower Bones, Insertion (ICD-10-PCS; principal; 2019-09-29 10:00)
DX: S72.011A Unspecified intracapsular fracture of right femur, initial encounter for closed fracture (principal); D61.818 Other pancytopenia; I48.20 Chronic atrial fibrillation, unspecified; I85.10 Secondary esophageal varices without bleeding; K74.60 Unspecified cirrhosis of liver; S50.01XA Contusion of right elbow, initial encounter; W19.XXXA Unspecified fall, initial encounter; E11.22 Type 2 diabetes mellitus with diabetic chronic kidney disease; N18.3 Chronic kidney disease, stage 3 (moderate); I12.9 Hypertensive chronic kidney disease with stage 1 through stage 4 chronic kidney disease, or unspecified chronic kidney disease; B18.2 Chronic viral hepatitis C; J44.9 Chronic obstructive pulmonary disease, unspecified; K59.00 Constipation, unspecified; F17.210 Nicotine dependence, cigarettes, uncomplicated; Z79.4 Long term (current) use of insulin
CPT/HCPCS: 36415; 36430; 51702; 71045; 72192; 73080; 73090; 73200; 73502; 73610; 73630; 80048; 80053; 82947; 85025; 85610; 86900; 86901; 94640; 94760; 94762; 96374-59; 96375-59; 96376-59; 97110; 97112; 97162; 97167; 97530; 99285-25; A9270; A9270-GY; C1713; C1769; J0690; J1100; J1170; J2270; J2405; J2704; J3010; J3370; J7030; J7050; J7120; P9035; U0002

== ENCOUNTER 2019-10-19 19:45 | Emergency (ER) | payer OTHER ==
[~2019-10-19] VITALS: Ht 185.4 cm; Wt 89.8 kg
[~2019-10-19 19:45] MED LIST changes: +CYCL10 PO
[2019-10-19 20:29] LABS: BASOPHILS ABSOLUTE AUTO 0.01 K/mm3 (0.00-0.23); BASOPHILS PERCENT AUTO 1 % (0-2); EOSINOPHILS ABSOLUTE AUTO 0.03 K/mm3 (0.00-0.68); EOSINOPHILS PERCENT AUTO 2 % (0-6); Hematocrit 33.8 % (33.0-51.0); Hemoglobin 11.1 g/dL (11.5-16.0); IMMATURE GRAN ABSOLUTE AUTO 0.01 K/mm3 (0.00-0.10); IMMATURE GRAN PERCENT AUTO 1 % (0-1); LYMPHOCYTES ABSOLUTE AUTO 0.47 K/mm3 (0.84-5.20); LYMPHOCYTES PERCENT AUTO 25 % (21-46); MONOCYTES ABSOLUTE AUTO 0.34 K/mm3 (0.16-1.47); MONOCYTES PERCENT AUTO 18 % (4-13); Mean Corpuscular HGB 30.4 pg (26.0-34.0); Mean Corpuscular HGB Conc 32.8 g/dL (31.5-36.5); Mean Corpuscular Volume 93 fL (80-100); Mean Platelet Volume 10.9 fL (9.1-12.4); NEUTROPHILS ABSOLUTE AUTO 1.04 K/mm3 (1.96-9.15); NEUTROPHILS PERCENT AUTO 55 % (41-73); Platelet Count 71 K/mm3 (150-400); RDW Coefficient Variation 15.1 % (11.7-14.2); RDW Standard Deviation 52.3 fL (35.1-46.3); Red Blood Cell Count 3.65 M/mm3 (3.80-5.20)
[2019-10-19 20:49] LABS: Alanine Aminotransfer (ALT/SGP 32 U/L (12-78); Albumin, Blood 2.6 g/dL (3.4-5.0); Albumin/Globulin Ratio 0.5 (0.8-1.8); Alk Phos 144 U/L (50-136); Anion Gap 6 mmol/L (6-16); Aspartate Aminotrans (AST/SGOT 54 U/L (12-37); Bilirubin, Total 0.7 mg/dL (0.1-1.0); Blood Urea Nitrogen 32 mg/dL (8-24); Bun/Creatinine Ratio 29.1 (12.0-20.0); CO2, Blood 25 mmol/L (21-32); Calcium, Blood 8.6 mg/dL (8.5-10.1); Chloride, Blood 106 mmol/L (98-108); Globulin, Blood 5.1 g/dL (2.2-4.0); Glomerular Filtration Rate 53 (60-); Glucose, Blood 118 mg/dL (70-99); Potassium, Blood 4.1 mmol/L (3.5-5.5); Sodium, Blood 137 mmol/L (136-145); Total Protein, Blood 7.7 g/dL (6.4-8.2)
[2019-10-19 22:11] LABS: Source, Urine Clean Catch
[2019-10-19 22:16] LABS: Bilirubin, Urine Neg (Neg); Blood, Urine 2+ (Neg); Glucose Qualitative, Urine Neg (Neg); Ketones, Urine Neg (Neg); Leukocyte Esterase, Urine Neg (Neg); Nitrite, Urine Neg (Neg); Protein, Urine Neg (Neg); Specific Gravity, Urine 1.015 (1.003-1.022); Urobilinogen, Urine NORM (Normal)
[2019-10-19 22:20] LABS: Appearance, Urine Clear (Clear); Color, Urine Yellow (P-Yellow)
[2019-10-19 22:22] LABS: Bacteria Few /hpf; Red Blood Cells, Urine 0-2 /hpf (0-2); Squamous Epithelial Cells Few /hpf (Few); White Blood Cells, Urine 0-2 /hpf (0-5)
== END 2019-10-19 22:59 | disposition home or self-care (01) ==
LOC: EDBD 19:45 → ER 19:45
PROVIDERS: Emergency Medicine; Physician Assistant
DX: M79.671 Pain in right foot (principal); M79.672 Pain in left foot; R53.1 Weakness; R30.0 Dysuria; R53.83 Other fatigue; R11.0 Nausea; R63.0 Anorexia; R51 Headache; I12.9 Hypertensive chronic kidney disease with stage 1 through stage 4 chronic kidney disease, or unspecified chronic kidney disease; E11.22 Type 2 diabetes mellitus with diabetic chronic kidney disease; N18.3 Chronic kidney disease, stage 3 (moderate); J44.9 Chronic obstructive pulmonary disease, unspecified; I48.91 Unspecified atrial fibrillation; Z87.440 Personal history of urinary (tract) infections; Z88.8 Allergy status to other drugs, medicaments and biological substances; Z88.1 Allergy status to other antibiotic agents; Z79.4 Long term (current) use of insulin; Z79.899 Other long term (current) drug therapy; Z87.891 Personal history of nicotine dependence
CPT/HCPCS: 36415; 80053; 81001; 85025; 93970; 99284-25

== ENCOUNTER → 2019-11-21 | Outpatient (CLI) | payer OTHER ==
[~2019-11-21] MED LIST changes: +ALLO300 PO; -CYCL10 PO; +FUROSEMIDE20 MG PO; +Flexeril5 MG PO; +Kristalose20 GM PO; +Lyrica75 MG PO; +Prednisone20 MG PO
[2019-11-21 16:13] LABS: Protein, Urine Quantitative 5.2 mg/dL (0.0-11.9)
[2019-11-21 16:17] LABS: Microalbumin, Urine Quant. <5.000 mg/L (0.000-20.000)
== END | disposition home or self-care (01) ==
LOC: LAB EV 10:20 → LAB SHORT 10:20
PROVIDERS: Internal Medicine Nephrology
DX: R76.9 Abnormal immunological finding in serum, unspecified (principal); R94.5 Abnormal results of liver function studies; R94.6 Abnormal results of thyroid function studies; D51.8 Other vitamin B12 deficiency anemias; D52.8 Other folate deficiency anemias; D50.9 Iron deficiency anemia, unspecified; N18.3 Chronic kidney disease, stage 3 (moderate); D63.1 Anemia in chronic kidney disease
CPT/HCPCS: 81050; 82043; 82570; 84156

== ENCOUNTER 2019-12-23 15:55 | Emergency (ER) | payer OTHER ==
[~2019-12-23] VITALS: Ht 182.9 cm; Wt 83.9 kg
[2019-12-23 17:25] LABS: BASOPHILS ABSOLUTE AUTO 0.01 K/mm3 (0.00-0.23); BASOPHILS PERCENT AUTO 0 % (0-2); EOSINOPHILS ABSOLUTE AUTO 0.01 K/mm3 (0.00-0.68); EOSINOPHILS PERCENT AUTO 0 % (0-6); Hematocrit 40.1 % (33.0-51.0); Hemoglobin 12.8 g/dL (11.5-16.0); IMMATURE GRAN ABSOLUTE AUTO 0.02 K/mm3 (0.00-0.10); IMMATURE GRAN PERCENT AUTO 0 % (0-1); LYMPHOCYTES ABSOLUTE AUTO 0.33 K/mm3 (0.84-5.20); LYMPHOCYTES PERCENT AUTO 6 % (21-46); MONOCYTES ABSOLUTE AUTO 0.45 K/mm3 (0.16-1.47); MONOCYTES PERCENT AUTO 9 % (4-13); Mean Corpuscular HGB 30.1 pg (26.0-34.0); Mean Corpuscular HGB Conc 31.9 g/dL (31.5-36.5); Mean Corpuscular Volume 94 fL (80-100); Mean Platelet Volume 11.9 fL (9.1-12.4); NEUTROPHILS ABSOLUTE AUTO 4.42 K/mm3 (1.96-9.15); NEUTROPHILS PERCENT AUTO 84 % (41-73); RDW Coefficient Variation 15.5 % (11.7-14.2); RDW Standard Deviation 53.8 fL (35.1-46.3); Red Blood Cell Count 4.25 M/mm3 (3.80-5.20); White Blood Cell Count 5.24 K/mm3 (4.00-11.30)
[2019-12-23 17:36] LABS: Platelet Count 50 K/mm3 (150-400)
[2019-12-23 17:38] LABS: International Normalized Ratio 1.33
[2019-12-23 17:45] LABS: Albumin, Blood 2.9 g/dL (3.4-5.0); Albumin/Globulin Ratio 0.7 (0.8-1.8); Bilirubin, Total 1.4 mg/dL (0.1-1.0); Bun/Creatinine Ratio 21.1 (12.0-20.0); Calcium, Blood 8.5 mg/dL (8.5-10.1); Creatinine, Blood 1.28 mg/dL (0.40-1.00); Globulin, Blood 4.2 g/dL (2.2-4.0); Potassium, Blood 4.9 mmol/L (3.5-5.5); Total Protein, Blood 7.1 g/dL (6.4-8.2)
== END 2019-12-23 23:30 | disposition home or self-care (01) ==
LOC: ER 15:55
PROVIDERS: Physician Assistant
DX: R18.8 Other ascites (principal); I12.9 Hypertensive chronic kidney disease with stage 1 through stage 4 chronic kidney disease, or unspecified chronic kidney disease; E11.22 Type 2 diabetes mellitus with diabetic chronic kidney disease; N18.30 Chronic kidney disease, stage 3 unspecified; I48.91 Unspecified atrial fibrillation; J44.9 Chronic obstructive pulmonary disease, unspecified; Z79.4 Long term (current) use of insulin; Z79.899 Other long term (current) drug therapy; Z87.891 Personal history of nicotine dependence
CPT/HCPCS: 36415; 80053; 85025; 85610; 85730; 99284

== ENCOUNTER 2019-12-29 09:47 | Day surgery (SDC) | payer OTHER | END 2019-12-29 23:26 | disposition home or self-care (01) | LOC: US 09:47 | DX: R18.8 Other ascites (principal); Z79.4 Long term (current) use of insulin; Z79.899 Other long term (current) drug therapy; Z88.8 Allergy status to other drugs, medicaments and biological substances; Z51.5 Encounter for palliative care | CPT/HCPCS: 76705 ==

== ENCOUNTER 2020-01-09 03:01 | Emergency (ER) | payer OTHER ==
[~2020-01-09] VITALS: Ht 182.9 cm; Wt 88.5 kg
[2020-01-09] MEDS ORDERED: MORP20L PO (03:42)
[2020-01-09 03:52] LABS: BASOPHILS ABSOLUTE AUTO 0.02 K/mm3 (0.00-0.23); BASOPHILS PERCENT AUTO 0 % (0-2); EOSINOPHILS PERCENT AUTO 0 % (0-6); Hemoglobin 14.4 g/dL (11.5-16.0); IMMATURE GRAN ABSOLUTE AUTO 0.08 K/mm3 (0.00-0.10); IMMATURE GRAN PERCENT AUTO 1 % (0-1); LYMPHOCYTES ABSOLUTE AUTO 0.66 K/mm3 (0.84-5.20); LYMPHOCYTES PERCENT AUTO 4 % (21-46); MONOCYTES ABSOLUTE AUTO 1.44 K/mm3 (0.16-1.47); MONOCYTES PERCENT AUTO 10 % (4-13); Mean Corpuscular HGB 30.4 pg (26.0-34.0); Mean Corpuscular HGB Conc 33.5 g/dL (31.5-36.5); Mean Corpuscular Volume 91 fL (80-100); Mean Platelet Volume 11.1 fL (9.1-12.4); NEUTROPHILS PERCENT AUTO 85 % (41-73); Platelet Count 131 K/mm3 (150-400); RDW Standard Deviation 50.3 fL (35.1-46.3); Red Blood Cell Count 4.73 M/mm3 (3.80-5.20)
[2020-01-09 04:13] LABS: Alanine Aminotransfer (ALT/SGP 43 U/L (12-78); Albumin, Blood 2.6 g/dL (3.4-5.0); Albumin/Globulin Ratio 0.6 (0.8-1.8); Alk Phos 141 U/L (50-136); Anion Gap 10 mmol/L (6-16); Aspartate Aminotrans (AST/SGOT 43 U/L (12-37); Bilirubin, Total 3.4 mg/dL (0.1-1.0); Blood Urea Nitrogen 44 mg/dL (8-24); Bun/Creatinine Ratio 30.6 (12.0-20.0); CO2, Blood 21 mmol/L (21-32); Calcium, Blood 8.8 mg/dL (8.5-10.1); Chloride, Blood 100 mmol/L (98-108); Creatinine, Blood 1.44 mg/dL (0.40-1.00); Globulin, Blood 4.1 g/dL (2.2-4.0); Glomerular Filtration Rate 39 (60-); Glucose, Blood 324 mg/dL (70-99); Potassium, Blood 5.1 mmol/L (3.5-5.5); Sodium, Blood 131 mmol/L (136-145); Total Protein, Blood 6.7 g/dL (6.4-8.2); Troponin I <0.015 ng/mL (0.000-0.040)
== END 2020-01-09 07:15 | disposition short-term general hospital (02) ==
LOC: ER 03:01
PROVIDERS: Emergency Medicine
DX: K80.20 Calculus of gallbladder without cholecystitis without obstruction (principal); K74.60 Unspecified cirrhosis of liver; E11.9 Type 2 diabetes mellitus without complications; I48.91 Unspecified atrial fibrillation; Z79.899 Other long term (current) drug therapy; Z87.891 Personal history of nicotine dependence; Z88.5 Allergy status to narcotic agent; Z88.1 Allergy status to other antibiotic agents; Z88.8 Allergy status to other drugs, medicaments and biological substances; Z79.4 Long term (current) use of insulin
CPT/HCPCS: 36415; 74176; 80053; 83690; 84484; 85025; 93005; 93010; 96374; 96375; 96376; 99285-25; J1170; J2405; J2543; J2550; U0004